=== PATIENT | female | born 1985 | race Two or more races ===

== ENCOUNTER 2022-08-20 16:44 | Inpatient (IN) | payer OTHER ==
[~2022-08-20] VITALS: Ht 167.6 cm; Wt 77.1 kg
== END 2022-08-22 14:06 | disposition home or self-care (01) | DRG 807 ==
LOC: LDR 16:44 → OB/GYN 08-21 17:47
PROVIDERS: ADMIT Student in an Organized Health Care Education/Training Program; ATTEND Student in an Organized Health Care Education/Training Program
PROC: 10E0XZZ Delivery of Products of Conception, External Approach (ICD-10-PCS; principal; 2022-08-20)
PROC: 0KQM0ZZ Repair Perineum Muscle, Open Approach (ICD-10-PCS; 2022-08-20)
PROC: 4A1HXCZ Monitoring of Products of Conception, Cardiac Rate, External Approach (ICD-10-PCS; 2022-08-20)
DX: O70.1 Second degree perineal laceration during delivery (principal); Z37.0 Single live birth; Z3A.39 39 weeks gestation of pregnancy; Z20.822 Contact with and (suspected) exposure to COVID-19